=== PATIENT | female | born 1950 | race Caucasian/White ===

== ENCOUNTER 2017-03-30 08:23 | Emergency (ER) | payer OTHER ==
[2017-03-30 08:31] VITALS: BP 158/65; PULSE 83; TEMP 98; BMI 41.0
--- NOTE | 2017-03-30 09:48 | PDOC ---
History of Present Illness - General Chief Complaint: Abscess Boil Stated Complaint: ABSCESS BOIL Time Seen by Provider: 03/30/17 09:19 History Source: Patient Exam Limitations: No Limitations - History of Present Illness Initial Comments: 03/30/17 09:42 CHIEF COMPLAINT: Abscess to the right external labia. HISTORY OF PRESENT ILLNESS: Patient is a 66-year-old female with history of colon CVA, hypothyroidism, DVT on Coumadin presents with abscess to right external labia. Patient reports for the last 24 hours she has been applying warm soaks which has reduced the size still with pain. Denies any drainage. No fever. Timing/Duration: reports: other (3 days) Severity: Yes: moderate Location: reports: genitalia Associated Symptoms: reports: swelling/mass/lumps. denies: rash Past History - Past Medical History Allergies/Adverse Reactions: Allergies Allergy/AdvReac Type Severity Reaction Status Date / Time No Known Drug Allergies Allergy Verified 03/30/17 08:24 Home Medications: Ambulatory Orders Levothyroxine [Synthroid -] 175 mcg PO DAILY 02/12/13 Acetaminophen [Tylenol .Regular Strength -] 650 mg PO Q6H PRN #0 tablet Albuterol 0.083% Nebulizer Aga [Ventolin 0.083% Nebulizer Soln -] 1 neb NEB Q4H PRN #0 vial 02/18/13 Atorvastatin Ca [Lipitor] 20 mg PO HS #0 tablet 02/18/13 Docusate Sodium [Colace -] 200 mg PO BID #0 capsule 02/18/13 Pantoprazole Sodium [Protonix -] 40 mg PO DAILY #0 tablet.ec 02/18/13 Sennosides [Senna -] 2 tab PO TID #0 tablet 02/18/13 Warfarin Na [Coumadin -] 7.5 mg PO DAILY@1800 #0 tablet 02/18/13 Oxycodone HCl/Acetaminophen [Percocet 5-325 mg Tablet] 1 - 2 tab PO Q6H #24 tab MDD 12 03/30/17 Sulfamethoxazole/Trimethoprim [Bactrim Ds -] 1 tab PO BID #20 tablet 03/30/17 Cancer: Yes COPD: No DVT: Yes (X2) Thyroid Disease: Yes - Suicide/Smoking/Psychosocial Hx Smoking History: Current every day smoker Have you smoked in the past 12 months: Yes Number of Cigarettes Smoked Daily: 3 Information on smoking cessation initiated: No 'Breaking Loose' booklet given: 02/09/13 Hx Alcohol Use: No Drug/Substance Use Hx: No Substance Use Type: None Hx Substance Use Treatment: No Review of Systems - Review of Systems Constitutional: No: Symptoms Reported HEENTM: No: Symptoms Reported Respiratory: No: Symptoms reported Cardiac (ROS): No: Symptoms Reported ABD/GI: No: Symptoms Reported : Yes: Lesions, Other (spontaneously draining erythematous warm right external labia with small hyperpigmented central area with small opening draining spontaneously) Musculoskeletal: No: Symptoms Reported Integumentary: Yes: Lesions, Lumps (right external labia) Neurological: No: Symptoms reported Hematologic/Lymphatic: No: Symptoms Reported, Lymph Node Abnormalities All Other Systems: Reviewed and Negative *Physical Exam - Vital Signs Last Vital Signs Temp Pulse Resp BP Pulse Ox 98 F 83 19 158/65 98 03/30/17 08:25 03/30/17 08:25 03/30/17 08:25 03/30/17 08:25 03/30/17 08:25 - Physical Exam General Appearance: Yes: Appropriately Dressed, Apparent Distress (mild distress ) HEENT: positive: MAYA, Normal ENT Inspection, Normal Voice, Symmetrical, TMs Normal, Scleral Icterus (L) Neck: negative: Tender, Tender lateral, Tender midline Respiratory/Chest: positive: Lungs Clear, Normal Breath Sounds. negative: Respiratory Distress, Accessory Muscle Use Cardiovascular: positive: Regular Rhythm, Regular Rate Female Pelvic Exam: positive: lesions, other (spontaneously draining erythematous warm right external labia with small hyperpigmented central area with small opening draining spontaneously). negative: discharge Gastrointestinal/Abdominal: positive: Normal Bowel Sounds, Soft. negative: Tender Rectal Exam: positive: normal exam Lymphatic: negative: Adenopathy, Tenderness Musculoskeletal: positive: Normal Inspection Integumentary: positive: Erythema (right external labia) Neurologic: positive: Alert, Normal Mood/Affect Medical Decision Making - Medical Decision Making 03/30/17 09:48 A/P: Patient here for evaluation of abscess to right external labia, because patient is on Coumadin at this time we will defer I&D patient reports decreased in size since yesterday since applying warm soaks. We'll DC patient on Bactrim, strict warm soaks for the next 48 hours if area becomes more inflamed, fever, patient to return for I&D. I discussed the physical exam findings, ancillary test results and final diagnoses with the patient. I answered all of the patient's questions. The patient was satisfied with the care received and felt comfortable with the discharge plan and treatment plan. The patient will call to arrange follow-up and will return to the Emergency Department with any new, persistent or worsening symptoms. *DC/Admit/Observation/Transfer Diagnosis at time of Disposition: Labial abscess - Discharge Dispostion Disposition: HOME Condition at time of disposition: Stable Admit: No - Prescriptions Prescriptions: Oxycodone HCl/Acetaminophen [Percocet 5-325 mg Tablet] 1 - 2 tab PO Q6H #24 tab MDD 12 Sulfamethoxazole/Trimethoprim [Bactrim Ds -] 1 tab PO BID #20 tablet - Referrals Referrals: Anup Castillo [Primary Care Provider] - - Patient Instructions Printed Discharge Instructions: DI for Skin Abscess Additional Instructions: Warm soaks to the area. Antibiotics as ordered. Follow up with MD for evaluation or return to the ER for draining in two days if area increases in size. - Post Discharge Activity Forms/Work/School Notes: Back to Work
== END 2017-03-30 10:02 | disposition home or self-care (01) ==
LOC: JERFT 08:23
DX: N76.4 Abscess of vulva (principal); E03.9 Hypothyroidism, unspecified; Z85.038 Personal history of other malignant neoplasm of large intestine; Z86.718 Personal history of other venous thrombosis and embolism; Z79.01 Long term (current) use of anticoagulants; F17.210 Nicotine dependence, cigarettes, uncomplicated
CPT/HCPCS: 99281-25